=== PATIENT | male | born 1950 | race Hispanic/Latino ===

== ENCOUNTER 2017-11-09 18:33 | Emergency (ER) | payer OTHER ==
[2017-11-09] MEDS ORDERED: AMOXICILLIN/POTASSIUM CLAV 875-125 TABLET PO ONE (19:41)
[2017-11-09] MEDS ORDERED: LIDOCAINE HCL 1% 20 ML VIAL ONE (19:41)
[2017-11-09] MEDS ORDERED: TETANUS/DIPHTHERIA TOXOID [ADULT] 0.5 ML VIAL IM ONE (20:36)
== END 2017-11-09 20:58 | disposition home or self-care (01) ==
LOC: EDH 18:33
DX: S61.411A Laceration without foreign body of right hand, initial encounter (principal); I10 Essential (primary) hypertension; W54.0XXA Bitten by dog, initial encounter; Y93.89 Activity, other specified; Y92.89 Other specified places as the place of occurrence of the external cause; Y99.8 Other external cause status
CPT/HCPCS: 12042; 73130; 90471; 90714

== ENCOUNTER → 2018-06-19 | Outpatient (CLI) | payer OTHER ==
[2018-06-19 08:30] LABS: BASOPHILS % (AUTO) 1.3 % (0.0-5.0); EOSINOPHILS % (AUTO) 12.8 % (0.0-8.0); HEMATOCRIT 39.4 % (42-54); MEAN CORPUSCULAR HGB CONC 33.3 g/dL (32.0-36.0); MEAN CORPUSCULAR VOLUME 90.1 fL (79-99); MONOCYTES % (AUTO) 7.7 % (3.0-13.0); NEUTROPHILS % (AUTO) 47.2 % (40.0-77.0); PLATELET COUNT (AUTO) 239 K/uL (130-400); RED BLOOD CELL COUNT(AUTO) 4.37 MIL/uL (4.50-6.20); RED CELL DISTRIBUTION WIDTH 13.7 % (11.0-15.5); WHITE BLOOD COUNT (AUTO) 5.7 K/uL (4.8-10.8)
[2018-06-19 08:36] LABS: APPEARANCE,URINE Clear (CLEAR); BILIRUBIN,URINE Negative (NEGATIVE); COLOR,URINE Yellow (YELLOW); GLUCOSE, URINE (UA) Negative (NEGATIVE); KETONES,URINE Negative (NEGATIVE); LEUKOCYTE ESTERASE ,URINE Trace (NEGATIVE); NITRATE,URINE Negative (NEGATIVE); OCCULT BLOOD,URINE Negative (NEGATIVE); PROTEIN,URINE Negative (NEGATIVE)
[2018-06-19 08:50] LABS: ALBUMIN 3.5 g/dL (3.5-5.0); BILIRUBIN,TOTAL 0.3 mg/dL (0.2-1.0); POTASSIUM 4.8 mmol/L (3.5-5.1); THYROID STIMULATING HORMONE 1.27 uIU/mL (0.36-3.74); TOTAL PROTEIN, SERUM 7.4 g/dL (6.0-8.3)
[2018-06-19 08:59] LABS: BACTERIA,URINE Rare /HPF (None Seen); MUCUS,URINE Rare LPF (None Seen); RBC,URINE None Seen /HPF (0-1); SQUAMOUS EPITHELIAL CELL,UR Rare /HPF (0-2); WBC,URINE 0-1 /HPF (0-1)
== END | disposition home or self-care (01) ==
LOC: LAB 07:28
PROVIDERS: ATTEND Family Medicine
DX: I10 Essential (primary) hypertension (principal); E78.5 Hyperlipidemia, unspecified; Z72.89 Other problems related to lifestyle
CPT/HCPCS: 36415; 80053; 80061; 81001; 82306; 83036; 84153; 84443; 85025

== ENCOUNTER → 2020-05-04 | Outpatient (CLI) | payer OTHER ==
[2020-05-04 09:20] LABS: EOSINOPHILS % (AUTO) 20.1 % (0.0-8.0); HEMATOCRIT 39.8 % (42-54); LYMPHOCYTES % (AUTO) 30.8 % (21.0-51.0); MEAN CORPUSCULAR HEMOGLOBIN 29.7 pg (27.0-33.0); MEAN CORPUSCULAR HGB CONC 33.2 g/dL (32.0-36.0); MEAN CORPUSCULAR VOLUME 89.4 fL (79-99); MONOCYTES % (AUTO) 7.2 % (3.0-13.0); NEUTROPHILS % (AUTO) 40.8 % (40.0-77.0); PLATELET COUNT (AUTO) 260 K/uL (130-400); RED BLOOD CELL COUNT(AUTO) 4.45 MIL/uL (4.50-6.20); RED CELL DISTRIBUTION WIDTH 13.3 % (11.0-15.5); WHITE BLOOD COUNT (AUTO) 6.7 K/uL (4.8-10.8)
[2020-05-04 09:28] LABS: HEMOGLOBIN A1C 6.2 % (4.0-6.0)
[2020-05-04 09:34] LABS: APPEARANCE,URINE Clear (CLEAR); BILIRUBIN,URINE Negative (NEGATIVE); COLOR,URINE Yellow (YELLOW); GLUCOSE, URINE (UA) Negative (NEGATIVE); KETONES,URINE Negative (NEGATIVE); LEUKOCYTE ESTERASE ,URINE Negative (NEGATIVE); NITRATE,URINE Negative (NEGATIVE); OCCULT BLOOD,URINE Negative (NEGATIVE); PROTEIN,URINE Negative (NEGATIVE)
[2020-05-04 09:53] LABS: ALBUMIN 3.8 g/dL (3.5-5.0); BILIRUBIN,TOTAL 0.4 mg/dL (0.2-1.0); POTASSIUM 4.1 mmol/L (3.5-5.1); THYROID STIMULATING HORMONE 1.73 uIU/mL (0.36-3.74); TOTAL PROTEIN, SERUM 7.8 g/dL (6.0-8.3)
== END | disposition home or self-care (01) ==
LOC: RAH 07:37
PROVIDERS: ATTEND Family Medicine
DX: Z00.00 Encounter for general adult medical examination without abnormal findings (principal)
CPT/HCPCS: 36415; 80053; 80061; 81003; 82270; 82306; 83036; 84153; 84154; 84443; 85025

== ENCOUNTER → 2020-10-16 | Outpatient (CLI) | payer OTHER | END | disposition home or self-care (01) | LOC: RAH 13:59 | PROVIDERS: ATTEND Psychiatry & Neurology Neurology | DX: G30.9 Alzheimer's disease, unspecified (principal); F02.80 Dementia in other diseases classified elsewhere, unspecified severity, without behavioral disturbance, psychotic disturbance, mood disturbance, and anxiety | CPT/HCPCS: 70450 ==

== ENCOUNTER → 2021-07-18 | Outpatient (CLI) | payer OTHER ==
[2021-07-18 15:57] LABS: BASOPHILS % (AUTO) 0.9 % (0.0-5.0); EOSINOPHILS % (AUTO) 10.4 % (0.0-8.0); HEMATOCRIT 37.5 % (42-54); MEAN CORPUSCULAR HEMOGLOBIN 29.4 pg (27.0-33.0); MEAN CORPUSCULAR HGB CONC 32.8 g/dL (32.0-36.0); MEAN CORPUSCULAR VOLUME 89.7 fL (79-99); MONOCYTES % (AUTO) 6.6 % (3.0-13.0); NEUTROPHILS % (AUTO) 54.8 % (40.0-77.0); PLATELET COUNT (AUTO) 245 K/uL (130-400); RED BLOOD CELL COUNT(AUTO) 4.18 MIL/uL (4.50-6.20); RED CELL DISTRIBUTION WIDTH 13.2 % (11.0-15.5); WHITE BLOOD COUNT (AUTO) 7.4 K/uL (4.8-10.8)
[2021-07-18 15:59] LABS: APPEARANCE,URINE Clear (CLEAR); BILIRUBIN,URINE Negative (NEGATIVE); COLOR,URINE Yellow (YELLOW); GLUCOSE, URINE (UA) Negative (NEGATIVE); KETONES,URINE Negative (NEGATIVE); LEUKOCYTE ESTERASE ,URINE Trace (NEGATIVE); NITRATE,URINE Negative (NEGATIVE); OCCULT BLOOD,URINE Negative (NEGATIVE); PROTEIN,URINE Negative (NEGATIVE)
[2021-07-18 16:10] LABS: HEMOGLOBIN A1C 6.3 % (4.0-6.0)
[2021-07-18 16:13] LABS: BACTERIA,URINE Rare /HPF (None Seen); RBC,URINE 0-1 /HPF (0-1); SQUAMOUS EPITHELIAL CELL,UR Few /HPF (0-2)
[2021-07-18 16:19] LABS: ALBUMIN 3.8 g/dL (3.5-5.0); BILIRUBIN,TOTAL 0.2 mg/dL (0.2-1.0); POTASSIUM 4.1 mmol/L (3.5-5.1); THYROID STIMULATING HORMONE 1.01 uIU/mL (0.36-3.74); TOTAL PROTEIN, SERUM 7.6 g/dL (6.0-8.3)
== END | disposition home or self-care (01) ==
LOC: LAB 15:19
PROVIDERS: ATTEND Family Medicine
DX: Z00.00 Encounter for general adult medical examination without abnormal findings (principal)
CPT/HCPCS: 80053; 80061; 81001; 82306; 83036; 84153; 84443; 85025

== ENCOUNTER → 2022-03-06 | Outpatient (CLI) | payer OTHER ==
[2022-03-06 11:28] LABS: BASOPHILS % (AUTO) 1.1 % (0.0-5.0); EOSINOPHILS % (AUTO) 13.2 % (0.0-8.0); HEMATOCRIT 39.8 % (42-54); LYMPHOCYTES % (AUTO) 36.6 % (21.0-51.0); MEAN CORPUSCULAR HEMOGLOBIN 29.4 pg (27.0-33.0); MEAN CORPUSCULAR HGB CONC 32.9 g/dL (32.0-36.0); MEAN CORPUSCULAR VOLUME 89.2 fL (79-99); MONOCYTES % (AUTO) 6.9 % (3.0-13.0); NEUTROPHILS % (AUTO) 41.9 % (40.0-77.0); PLATELET COUNT (AUTO) 298 K/uL (130-400); RED BLOOD CELL COUNT(AUTO) 4.46 MIL/uL (4.50-6.20); RED CELL DISTRIBUTION WIDTH 13.9 % (11.0-15.5); WHITE BLOOD COUNT (AUTO) 6.4 K/uL (4.8-10.8)
[2022-03-06 11:41] LABS: HEMOGLOBIN A1C 6.2 % (4.0-6.0)
[2022-03-06 11:48] LABS: ALBUMIN 3.8 g/dL (3.5-5.0); POTASSIUM 4.2 mmol/L (3.5-5.1); THYROID STIMULATING HORMONE 2.2 uIU/mL (0.36-3.74); TOTAL PROTEIN, SERUM 7.9 g/dL (6.0-8.3)
== END | disposition home or self-care (01) ==
LOC: LAB 10:15
PROVIDERS: ATTEND Family Medicine
DX: I10 Essential (primary) hypertension (principal); E78.5 Hyperlipidemia, unspecified; G47.33 Obstructive sleep apnea (adult) (pediatric); G30.9 Alzheimer's disease, unspecified; F02.80 Dementia in other diseases classified elsewhere, unspecified severity, without behavioral disturbance, psychotic disturbance, mood disturbance, and anxiety
CPT/HCPCS: 36415; 80053; 80061; 82043; 82270; 82306; 83036; 84153; 84154; 84443; 85025

== ENCOUNTER 2022-04-14 10:30 | Day surgery (SDC) | payer OTHER ==
[~2022-04-14] VITALS: Ht 162.6 cm; Wt 83.9 kg
[2022-04-14] VITALS (9 sets, daily range): BP systolic 108–130; BP diastolic 64–80
[~2022-04-14 10:30] MED LIST: ASPI-1197 PO; CHOL200013 PO; CYAN-35 PO; ESCI5TAB16 PO; FISH OIL; GINK120C PO; GINSENG; LISI5TAB21 PO; MEMA5TAB42 PO; PYRI100T10 PO; SIMV-43 PO; TURM500C7 PO
[2022-04-14] MEDS ORDERED: 0.9%NACL 1000ML 1,000 ML IV ONE (11:18)
[2022-04-14] MEDS ORDERED: PROPOFOL 10 MG/ML 20ML VIAL IV ONE (12:35)
[2022-04-14] MEDS ORDERED: GLYCOPYRROLATE 1 MG/5 ML SYRINGE ONE (12:38)
== END 2022-04-14 13:05 | disposition home or self-care (01) ==
LOC: DAH 10:30 → ENDO 10:30
PROVIDERS: ATTEND Internal Medicine Gastroenterology
DX: Z12.11 Encounter for screening for malignant neoplasm of colon (principal); K63.5 Polyp of colon; K57.30 Diverticulosis of large intestine without perforation or abscess without bleeding; G47.33 Obstructive sleep apnea (adult) (pediatric); J45.909 Unspecified asthma, uncomplicated; M19.90 Unspecified osteoarthritis, unspecified site; I10 Essential (primary) hypertension; E78.5 Hyperlipidemia, unspecified; F41.9 Anxiety disorder, unspecified; Z80.0 Family history of malignant neoplasm of digestive organs; Z72.89 Other problems related to lifestyle; Z79.899 Other long term (current) drug therapy; Z86.010 Personal history of colon polyps
CPT/HCPCS: 87426; 45385; J3490; J7030 ×2; J2704; A4215 ×2; A4223; A4657; A4222; A4221; A4663; A4216; A4606

== ENCOUNTER → 2022-06-10 | Outpatient (CLI) | payer OTHER ==
[2022-06-10 15:28] LABS: EOSINOPHILS % (AUTO) 10.9 % (0.0-8.0); HEMATOCRIT 42.1 % (42-54); LYMPHOCYTES % (AUTO) 30.8 % (21.0-51.0); MEAN CORPUSCULAR HEMOGLOBIN 28.8 pg (27.0-33.0); MEAN CORPUSCULAR HGB CONC 32.5 g/dL (32.0-36.0); MEAN CORPUSCULAR VOLUME 88.4 fL (79-99); MONOCYTES % (AUTO) 6.4 % (3.0-13.0); NEUTROPHILS % (AUTO) 50.8 % (40.0-77.0); PLATELET COUNT (AUTO) 261 K/uL (130-400); RED BLOOD CELL COUNT(AUTO) 4.76 MIL/uL (4.50-6.20); RED CELL DISTRIBUTION WIDTH 13.3 % (11.0-15.5); WHITE BLOOD COUNT (AUTO) 7.8 K/uL (4.8-10.8)
[2022-06-10 15:30] LABS: APPEARANCE,URINE CLEAR (CLEAR); BILIRUBIN,URINE NEGATIVE (NEGATIVE); COLOR,URINE LIGHT-YELLOW (YELLOW); GLUCOSE, URINE (UA) NEGATIVE (NEGATIVE); KETONES,URINE NEGATIVE (NEGATIVE); LEUKOCYTE ESTERASE ,URINE NEGATIVE Leu/uL (NEGATIVE); NITRATE,URINE NEGATIVE (NEGATIVE); PROTEIN,URINE NEGATIVE (NEGATIVE); UROBILINOGEN,URINE 0.2 mg/dL (0.2-1.0)
[2022-06-10 15:35] LABS: MUCUS,URINE RARE LPF (None Seen); SQUAMOUS EPITHELIAL CELL,UR RARE /HPF (0-2); WBC,URINE 0-1 /HPF (0-1)
[2022-06-10 15:51] LABS: ALBUMIN 4.1 g/dL (3.5-5.0); CREATININE 0.9 mg/dL (0.5-1.5); POTASSIUM 4.3 mmol/L (3.5-5.1); THYROID STIMULATING HORMONE 2.61 uIU/mL (0.36-3.74); TOTAL PROTEIN, SERUM 8.5 g/dL (6.0-8.3)
== END | disposition home or self-care (01) ==
LOC: LAB 14:55
PROVIDERS: ATTEND Family Medicine
DX: I10 Essential (primary) hypertension (principal); F03.90 Unspecified dementia, unspecified severity, without behavioral disturbance, psychotic disturbance, mood disturbance, and anxiety; E66.9 Obesity, unspecified
CPT/HCPCS: 36415; 80053; 80061; 81001; 83036; 84153; 84443; 85025

== ENCOUNTER 2022-06-28 00:06 | Emergency (ER) | payer OTHER ==
[~2022-06-28] VITALS: Ht 162.6 cm; Wt 83.9 kg
[2022-06-28] MEDS ORDERED: IBUPROFEN 600 MG TABLET PO ONE (08:30)
[2022-06-28] MEDS ORDERED: CEFTRIAXONE 1G VIAL IM ONE (08:30)
[2022-06-28] MEDS ORDERED: AMOX1TAB16 PO (08:30)
[2022-06-28] MEDS ORDERED: IBUP-2070 PO (08:30)
[2022-06-28] MEDS ORDERED: HYDROCODONE/ACETAMINOPHEN 5/325 MG TAB PO ONE (08:30)
[2022-06-28] MEDS ORDERED: ACET-2079 PO (08:30)
[2022-06-28] MEDS ORDERED: BENZOCAINE 20% 57 GM SPRAY TP SCH (08:30)
[2022-06-28 08:47] VITALS: BP 125/57
== END 2022-06-28 08:50 | disposition home or self-care (01) ==
LOC: EDH 00:06
DX: K04.7 Periapical abscess without sinus (principal); K08.89 Other specified disorders of teeth and supporting structures; I10 Essential (primary) hypertension; F03.90 Unspecified dementia, unspecified severity, without behavioral disturbance, psychotic disturbance, mood disturbance, and anxiety; Z79.899 Other long term (current) drug therapy; Z79.82 Long term (current) use of aspirin
CPT/HCPCS: 99283; 96372; J0696

== ENCOUNTER → 2022-10-06 | Outpatient (CLI) | payer OTHER ==
[~2022-10-06] MED LIST changes: +ACET-2079 PO; +AMOX1TAB16 PO; +IBUP-2070 PO
[2022-10-06 11:07] LABS: APPEARANCE,URINE CLEAR (CLEAR); BILIRUBIN,URINE NEGATIVE (NEGATIVE); COLOR,URINE LIGHT-YELLOW (YELLOW); GLUCOSE, URINE (UA) NEGATIVE (NEGATIVE); KETONES,URINE NEGATIVE (NEGATIVE); LEUKOCYTE ESTERASE ,URINE NEGATIVE Leu/uL (NEGATIVE); NITRATE,URINE NEGATIVE (NEGATIVE); OCCULT BLOOD,URINE NEGATIVE (NEGATIVE); PROTEIN,URINE NEGATIVE (NEGATIVE); UROBILINOGEN,URINE 0.2 mg/dL (0.2-1.0)
[2022-10-06 11:15] LABS: HEMATOCRIT 41.5 % (42-54); LYMPHOCYTES % (AUTO) 30.8 % (21.0-51.0); MEAN CORPUSCULAR HEMOGLOBIN 29.5 pg (27.0-33.0); MEAN CORPUSCULAR HGB CONC 32.8 g/dL (32.0-36.0); MONOCYTES % (AUTO) 7.1 % (3.0-13.0); NEUTROPHILS % (AUTO) 44.9 % (40.0-77.0); PLATELET COUNT (AUTO) 232 K/uL (130-400); RED BLOOD CELL COUNT(AUTO) 4.61 MIL/uL (4.50-6.20); RED CELL DISTRIBUTION WIDTH 13.3 % (11.0-15.5); WHITE BLOOD COUNT (AUTO) 6.1 K/uL (4.8-10.8)
[2022-10-06 11:20] LABS: HEMOGLOBIN A1C 6.1 % (4.0-6.0)
[2022-10-06 11:39] LABS: ALBUMIN 3.8 g/dL (3.5-5.0); CREATININE 0.9 mg/dL (0.5-1.5); POTASSIUM 4.4 mmol/L (3.5-5.1); THYROID STIMULATING HORMONE 2.92 uIU/mL (0.36-3.74); TOTAL PROTEIN, SERUM 7.5 g/dL (6.0-8.3)
== END | disposition home or self-care (01) ==
LOC: LAB 09:58
PROVIDERS: ATTEND Family Medicine
DX: Z00.00 Encounter for general adult medical examination without abnormal findings (principal); Z12.5 Encounter for screening for malignant neoplasm of prostate; I10 Essential (primary) hypertension; E78.5 Hyperlipidemia, unspecified
CPT/HCPCS: 36415; 80053; 80061; 81003; 82270; 83036; 84153; 84443; 85025

== ENCOUNTER 2023-03-13 07:57 | Day surgery (SDC) | payer OTHER ==
[2023-03-13] MEDS ORDERED: 0.9%NACL 1000ML 1,000 ML IV ONE (08:27)
[2023-03-13 08:42] VITALS: BP 112/57; PULSE 54; RESP 16
[2023-03-13] MEDS ORDERED: LIDOCAINE PF 100MG/5ML (2%) SYRINGE 5ML ONE (09:40)
[2023-03-13] MEDS ORDERED: PROPOFOL 10 MG/ML 20ML VIAL IV ONE ×2 (09:40→09:47)
== END 2023-03-13 10:40 | disposition home or self-care (01) ==
LOC: ENDO 07:57 → DAH 07:57 → ENDO 10:40
PROVIDERS: ATTEND Internal Medicine Gastroenterology
DX: R63.4 Abnormal weight loss (principal); Z20.822 Contact with and (suspected) exposure to COVID-19; R63.0 Anorexia; K29.50 Unspecified chronic gastritis without bleeding; K31.7 Polyp of stomach and duodenum; K31.89 Other diseases of stomach and duodenum; K57.30 Diverticulosis of large intestine without perforation or abscess without bleeding; J45.909 Unspecified asthma, uncomplicated; G47.30 Sleep apnea, unspecified; I10 Essential (primary) hypertension; E78.5 Hyperlipidemia, unspecified; F41.9 Anxiety disorder, unspecified; Z86.010 Personal history of colon polyps; Z98.890 Other specified postprocedural states; Z80.0 Family history of malignant neoplasm of digestive organs; Z68.31 Body mass index [BMI] 31.0-31.9, adult; Z79.82 Long term (current) use of aspirin; Z79.899 Other long term (current) drug therapy
CPT/HCPCS: 43251; 43239; J7030 ×2; J2001; J2704 ×2; A4620; A4215 ×2; A4223; A7002; A4222; A4221; A4663; A4216; A4606; J3490

== ENCOUNTER → 2023-04-29 | Outpatient (CLI) | payer OTHER ==
[~2023-04-29] MED LIST changes: -ACET-2079 PO; -AMOX1TAB16 PO; -CHOL200013 PO; -IBUP-2070 PO
[2023-04-29 07:50] LABS: BASOPHILS # (AUTO) 0.08 K/uL (0.00-0.20); BASOPHILS % (AUTO) 1.2 % (0.0-5.0); EOSINOPHILS # (AUTO) 1.24 K/uL (0.00-0.70); EOSINOPHILS % (AUTO) 18.6 % (0.0-8.0); HEMATOCRIT 39.8 % (42-54); IMMATURE GRANULOCYTE ABSOLUTE 0.02 K/uL (0-1); LYMPHOCYTES % (AUTO) 30.5 % (21.0-51.0); MEAN CORPUSCULAR HEMOGLOBIN 29.9 pg (27.0-33.0); MEAN CORPUSCULAR HGB CONC 32.9 g/dL (32.0-36.0); MEAN CORPUSCULAR VOLUME 90.9 fL (79-99); MONOCYTES # (AUTO) 0.4 K/uL (0.1-1.0); MONOCYTES % (AUTO) 6.4 % (3.0-13.0); NEUTROPHILS # (AUTO) 2.9 K/uL (1.8-7.7); PLATELET COUNT (AUTO) 280 K/uL (130-400); RED BLOOD CELL COUNT(AUTO) 4.38 MIL/uL (4.50-6.20); RED CELL DISTRIBUTION WIDTH 13.3 % (11.0-15.5); WHITE BLOOD COUNT (AUTO) 6.7 K/uL (4.8-10.8)
[2023-04-29 08:36] LABS: ALBUMIN 3.5 g/dL (3.5-5.0); BILIRUBIN,TOTAL 0.2 mg/dL (0.2-1.0); CREATININE 0.9 mg/dL (0.5-1.5); POTASSIUM 4.3 mmol/L (3.5-5.1); TOTAL PROTEIN, SERUM 7.4 g/dL (6.0-8.3)
== END | disposition home or self-care (01) ==
LOC: LAB 07:25
PROVIDERS: ATTEND Family Medicine
DX: K29.40 Chronic atrophic gastritis without bleeding (principal); R63.0 Anorexia; R63.4 Abnormal weight loss
CPT/HCPCS: 36415; 80053; 82607; 82941; 83540; 85025; 86255; 86340

== ENCOUNTER → 2023-05-06 | Outpatient (CLI) | payer OTHER | END | disposition home or self-care (01) | LOC: RAH 12:26 | PROVIDERS: ATTEND Physician Assistant Medical | DX: R63.0 Anorexia (principal); R63.4 Abnormal weight loss | CPT/HCPCS: 36415; 71046; 84443 ==

== ENCOUNTER → 2023-05-11 | Outpatient (CLI) | payer OTHER ==
[~2023-05-11] MED LIST changes: +IOHEXOL-350 75 ML VIAL IV ONE
== END | disposition home or self-care (01) ==
LOC: RAH 07:43
PROVIDERS: ATTEND Internal Medicine Gastroenterology
DX: N28.1 Cyst of kidney, acquired (principal); R63.0 Anorexia; R63.4 Abnormal weight loss; K76.0 Fatty (change of) liver, not elsewhere classified; M47.815 Spondylosis without myelopathy or radiculopathy, thoracolumbar region; I70.0 Atherosclerosis of aorta
CPT/HCPCS: 74178; Q9967

== ENCOUNTER 2023-12-04 20:56 | Emergency (ER) | payer OTHER ==
[~2023-12-04] VITALS: Ht 162.6 cm; Wt 81.6 kg
[~2023-12-04 20:56] MED LIST changes: -IOHEXOL-350 75 ML VIAL IV ONE; +MEMA5TAB16 PO; -MEMA5TAB42 PO
[2023-12-04 21:42] LABS: BASOPHILS # (AUTO) 0.05 K/uL (0.00-0.20); BASOPHILS % (AUTO) 0.5 % (0.0-5.0); EOSINOPHILS # (AUTO) 0.62 K/uL (0.00-0.70); EOSINOPHILS % (AUTO) 5.9 % (0.0-8.0); HEMATOCRIT 37.9 % (42-54); IMMATURE GRANULOCYTE ABSOLUTE 0.03 K/uL (0-1); LYMPHOCYTES # (AUTO) 1.9 K/uL (1.0-4.8); LYMPHOCYTES % (AUTO) 17.6 % (21.0-51.0); MEAN CORPUSCULAR HEMOGLOBIN 29.7 pg (27.0-33.0); MEAN CORPUSCULAR HGB CONC 34.3 g/dL (32.0-36.0); MEAN CORPUSCULAR VOLUME 86.5 fL (79-99); MONOCYTES # (AUTO) 0.7 K/uL (0.1-1.0); MONOCYTES % (AUTO) 6.8 % (3.0-13.0); NEUTROPHILS # (AUTO) 7.3 K/uL (1.8-7.7); NEUTROPHILS % (AUTO) 68.9 % (40.0-77.0); PLATELET COUNT (AUTO) 232 K/uL (130-400); RED BLOOD CELL COUNT(AUTO) 4.38 MIL/uL (4.50-6.20); RED CELL DISTRIBUTION WIDTH 13.2 % (11.0-15.5); WHITE BLOOD COUNT (AUTO) 10.6 K/uL (4.8-10.8)
[2023-12-04 21:55] LABS: APPEARANCE,URINE TURBID (CLEAR); BILIRUBIN,URINE NEGATIVE (NEGATIVE); COLOR,URINE RED (YELLOW); GLUCOSE, URINE (UA) NEGATIVE (NEGATIVE); KETONES,URINE NEGATIVE (NEGATIVE); LEUKOCYTE ESTERASE ,URINE TRACE Leu/uL (NEGATIVE); NITRATE,URINE NEGATIVE (NEGATIVE); OCCULT BLOOD,URINE LARGE (NEGATIVE); PH,URINE 6.5 (5.0-8.0); PROTEIN,URINE 100 mg/dL (NEGATIVE)
[2023-12-04 21:57] LABS: BACTERIA,URINE Few /HPF (None Seen); RBC,URINE TNTC /HPF (0-1); YEAST,URINE BUDDING Few /HPF (None Seen)
[2023-12-04 22:02] LABS: INR <= 0.93 (0.85-1.15); PROTHROMBIN TIME 10.4 SEC (9.6-11.6)
[2023-12-04 22:03] LABS: PARTIAL THROMBOPLASTIN TIME 27.4 SEC (26.3-35.5)
[2023-12-04 22:12] LABS: ALBUMIN 3.7 g/dL (3.5-5.0); BILIRUBIN,TOTAL 0.2 mg/dL (0.2-1.0); TOTAL PROTEIN, SERUM 7.7 g/dL (6.0-8.3)
[2023-12-04] MEDS ORDERED: CEPH500B PO (22:28)
[2023-12-04] MEDS ORDERED: TAMS-1 PO (22:29)
[2023-12-04 22:40] VITALS: BP 134/75; PULSE 86; RESP 18; O2SAT 99
== END 2023-12-04 22:56 | disposition home or self-care (01) ==
LOC: EDH 20:56
DX: R31.9 Hematuria, unspecified (principal); I10 Essential (primary) hypertension; F03.90 Unspecified dementia, unspecified severity, without behavioral disturbance, psychotic disturbance, mood disturbance, and anxiety; Z79.82 Long term (current) use of aspirin; Z79.899 Other long term (current) drug therapy
CPT/HCPCS: 36415; 74176; 80053; 81001; 85025; 85610; 85730

== ENCOUNTER → 2024-12-20 | Outpatient (CLI) | payer OTHER ==
[~2024-12-20] MED LIST changes: +CEPH500B PO; -GINK120C PO; +GINK120C3 PO; +TAMS-55 PO
[2024-12-20 22:03] VITALS: PULSE 60; RESP 12
[2024-12-20 22:30] VITALS: PULSE 64; RESP 14
[2024-12-20 22:57] VITALS: PULSE 65; RESP 12
[2024-12-20 23:28] VITALS: PULSE 61; RESP 12
[2024-12-20 23:58] VITALS: PULSE 55; RESP 12
[2024-12-21] VITALS (9 sets, daily range): PULSE 52–72; RESP 12–14
== END | disposition home or self-care (01) ==
LOC: SLP 20:25
PROVIDERS: ATTEND Orthopaedic Surgery
DX: G47.33 Obstructive sleep apnea (adult) (pediatric) (principal); R06.83 Snoring; R40.0 Somnolence
CPT/HCPCS: 95810

== ENCOUNTER → 2025-01-06 | Outpatient (CLI) | payer OTHER ==
[2025-01-06 21:13] VITALS: PULSE 54; RESP 18
[2025-01-06 22:00] VITALS: PULSE 50; RESP 14
[2025-01-06 22:30] VITALS: PULSE 54; RESP 14
[2025-01-06 23:00] VITALS: PULSE 58; RESP 16
[2025-01-06 23:30] VITALS: PULSE 54; RESP 12
[2025-01-07] VITALS (12 sets, daily range): PULSE 48–58; RESP 12–28
== END | disposition home or self-care (01) ==
LOC: SLP 19:28
PROVIDERS: ATTEND Orthopaedic Surgery
DX: G47.33 Obstructive sleep apnea (adult) (pediatric) (principal); R06.83 Snoring; R53.83 Other fatigue; R45.1 Restlessness and agitation; N52.9 Male erectile dysfunction, unspecified
CPT/HCPCS: 95811

== ENCOUNTER 2025-02-05 01:13 | Observation (INO) | payer OTHER ==
[~2025-02-05] VITALS: Ht 162.6 cm; Wt 84.4 kg
--- NOTE | 2025-02-05 01:20 | NUR ---
COVID , FLU SWABS COLLECTED AND SENT [facility] [place] [facility] PROVIDED
[2025-02-05 01:39] LABS: SARS-CoV-2, RNA, NAAT NEGATIVE SARS CoV-2 (NEGATIVE)
[2025-02-05 01:49] LABS: INFLUENZA TYPE A Negative For Type A (NEGATIVE); INFLUENZA TYPE B Negative For Type B (NEGATIVE)
[2025-02-05 01:50] LABS: IMMATURE GRANULOCYTE ABSOLUTE 0.01 K/uL (0-1); NUCLEATED RED BLOOD CELLS 0.0 % (0.0-0.19); PLATELET COUNT (AUTO) 231 K/uL (130-400); RED BLOOD CELL COUNT(AUTO) 4.43 MIL/uL (4.50-6.20); RED CELL DISTRIBUTION WIDTH 12.8 % (11.0-15.5); WHITE BLOOD COUNT (AUTO) 8.2 K/uL (4.8-10.8)
--- NOTE | 2025-02-05 01:58 | NUR ---
PT SITTING IN LOBBY, WITH FAMILY. PT AND FAMILY TALKING, INTERACTING WELL. GOOD EVEN CHEST RISE AND FALL NOTED
[2025-02-05 01:59] LABS: CREATININE 0.9 mg/dL (0.5-1.3); GLOMERULAR FILTR. RATE CALC 90.0 mL/min (>90); GLUCOSE,RANDOM 102.0 mg/dL (70-105); SODIUM SERUM 141.0 mmol/L (136-145); UREA NITROGEN, BLOOD 15.0 mg/dL (7-18)
[2025-02-05 02:04] LABS: CREATINE KINASE, TOTAL 132.0 U/L (21-232)
--- NOTE | 2025-02-05 02:10 | NUR ---
[facility] COLLECTED AND SENT
[2025-02-05 02:23] LABS: ADD UA MICROSCOPIC YES; APPEARANCE,URINE CLEAR (CLEAR); GLUCOSE, URINE (UA) NEGATIVE (NEGATIVE); LEUKOCYTE ESTERASE ,URINE NEGATIVE Leu/uL (NEGATIVE); NITRATE,URINE NEGATIVE (NEGATIVE); OCCULT BLOOD,URINE SMALL (NEGATIVE)
[2025-02-05 02:31] LABS: SQUAMOUS EPITHELIAL CELL,UR RARE /HPF (0-2)
--- NOTE | 2025-02-05 03:03 | HMCIMG ---
EXAM: CR Chest, 1 view CLINICAL HISTORY: Chest pain. COMPARISON: Chest radiograph dated 05/06/2023. FINDINGS: The lungs show no infiltrates or other acute findings. No pleural effusion or pneumothorax. The cardiomediastinal silhouette is within normal limits. Mild atherosclerotic aorta. No acute osseous abnormality. IMPRESSION: No acute cardiopulmonary process is evident. No interval changes. /[place]
--- NOTE | 2025-02-05 03:06 | ERN ---
ED Note History of Present Illness Stated Complaint: CHEST PAIN Chief Complaint: Chest Pain Time Seen by MD: 02:19 Dictation: This is a 74-year-old male who presented to the emergency room complaining of chest heaviness for the past 9 days. He also reported a dry cough with the diff iculty expectorating. No palpitations diaphoresis syncopal episode. No nausea vomitings diarrhea. Patient has underlying dementia and is a poor historian information obtained from the .He stated that he still awaiting a BiPAP arrangement and he has just recently finished to sleep studies. No fever chills or rigors. Temperature 97.5 pulse 61 respirations 18 blood pressure 170/73 with a pulse oximetry 97% on room air Chronic medical problems include hypertension, dementia, obstructive sleep apnea syndrome and patient has stopped using his CPAP machine since June 2024. He has history of diverticulosis as well as UTI in the past Allergies: Coded Allergies: No Known Drug Allergies (Unverified Allergy, Unknown, 12/05/16) Home Meds Active Scripts Tamsulosin HCl (Flomax) 0.4 Mg Cap.er.24h, 0.4 MG PO DAILY, #7 CAPSULE.DR Prov:OZZIE CORRIGAN MD 12/04/23 Cephalexin Monohydrate (Keflex) 500 Mg Cap, 500 MG PO BID for 7 Days, #14 CAP Prov:OZZIE CORRIGAN MD 12/04/23 Reported Medications Escitalopram Oxalate (Escitalopram Oxalate) 5 Mg Tablet, 5 MG PO HS, TAB 04/11/22 Simvastatin (Simvastatin) 20 Mg Tablet, 20 MG PO HS, TAB 04/11/22 Lisinopril (Lisinopril) 5 Mg Tablet, 5 MG PO HS, TAB 04/11/22 Aspirin (Aspirin) 81 Mg Tab.chew, 81 MG PO DAILY, TAB.CHEW 04/11/22 Cyanocobalamin (Vitamin B-12) (Vitamin B-12) 1,000 Mcg Capsule, 1000 MCG PO DAILY, CAP 04/11/22 Ginkgo Biloba Extract (Ginkgo Biloba) 120 Mg Capsule, 120 MG PO DAILY, CAP 04/11/22 [Kiswahili Panax Gingeng] No Conflict Check, 500 MG 04/11/22 Turmeric/Turmeric Root Extract (Turmeric 450-50 mg Capsule) 1 Each Capsule, 1 EACH PO DAILYBKFST, CAP 04/11/22 Pyridoxine HCl (Vitamin B-6) 100 Mg Tablet, 100 MG PO BID, TAB 04/11/22 Memantine HCl (Memantine HCl) 5 Mg Tablet, 5 MG PO BID, TAB 04/11/22 [Fish Oil] No Conflict Check, 1350 MG 04/11/22 Past Medical History Past Medical History: Dementia, Diverticulosis, Hypertension, UTI, Other Additional Past Medical Hx: SLEEP APNEA WITH C CPAP Surgical History: Other Surgical History Other: PROSTATE Family History: Negative Social History: Negative, Lives with family RN Note Reviewed/Agreed w/PFSH: Yes Review of System Dictation Constitutional: Negative for fever,chills, and weight loss Eyes: Negative for injury, pain,redness, and discharge ENT: Negative for injury,pain or swelling Cardiovascular: Positive for chest pain, denies palpitations, and edema Respiratory: Negative for shortness of breath, cough, and wheezing, Abdomen/GI: Negative for abdominal pain, nausea, vomiting, diarrhea, and constipation Back: Negative for injury and pain : Negative for injury, bleeding and discharge MS/Extremity: Negative for injury and deformity Skin: Negative for rash, and discoloration Neuro: Negative for headache, weakness, numbness, tingling, and seizure Psych: Negative for suicide ideation, homicidal ideation, and hallucinations Initial Vital Sign VS Vital Signs Date Time Temp Pulse Resp B/P (MAP) Pulse Ox O2 Delivery O2 Flow Rate FiO2 02/05/25 01:14 97.5 61 18 170/73 97 Room Air 02/05/25 02:36 0 21 Physical Exam Dictation General: awake, alert, NAD Head/Face: Normocephalic, atraumatic Eyes: PERRL, EOMI, vision at baseline ENT: oral cavity clear, TMs clear, no signs of infection Neck: Trachea midline, supple, no nuchal rigidity Cardiovascular: RRR, normal S1/S2, No MRGs, no JVD Respiratory: CTAB, no respiratory distress, No rales or wheezes Abdomen: Soft, non-tender, non-distended, normal bowel sounds, no guarding or rebound. Skin: Warm, dry, normal turgor, no rash MS/Extremity: Pulses equal, no cyanosis, neurovascular intact, FROM Neuro: COAx4, GCS 15, strength 5/5, CN 2-12 intact, normal cerebellar exam, normal gait, Psych: Normal behavior, mood, and affect normal Extremities-trace edema without any palpable cords, Homans sign is negative Results (Laboratory/Radiology) Laboratory/Radiology Laboratory Tests Test 02/05/25 01:20 02/05/25 01:36 02/05/25 02:09 Influenza Type A Antigen Negative For Type A Influenza Type B Antigen Negative For Type B SARS-CoV-2, RNA, NAAT NEGATIVE SARS CoV-2 White Blood Count 8.2 K/uL (4.8-10.8) Red Blood Count 4.43 MIL/uL (4.50-6.20) L Hemoglobin 13.3 g/dL (14.0-18.0) L Hematocrit 39.5 % (42-54) L Mean Corpuscular Volume 89.2 fL (79-99) Mean Corpuscular Hemoglobin 30.0 pg (27.0-33.0) Mean Corpuscular Hemoglobin Concent 33.7 g/dL (32.0-36.0) Red Cell Distribution Width 12.8 % (11.0-15.5) Platelet Count 231 K/uL (130-400) Mean Platelet Volume 9.9 fL (7.5-10.5) Immature Granulocyte % (Auto) 0.1 % (0-1) Neutrophils (%) (Auto) 43.9 % (40.0-77.0) Lymphocytes (%) (Auto) 37.7 % (21.0-51.0) Monocytes (%) (Auto) 6.9 % (3.0-13.0) Eosinophils (%) (Auto) 10.3 % (0.0-8.0) H Basophils (%) (Auto) 1.1 % (0.0-5.0) Neutrophils # (Auto) 3.6 K/uL (1.8-7.7) Lymphocytes # (Auto) 3.1 K/uL (1.0-4.8) Monocytes # (Auto) 0.6 K/uL (0.1-1.0) Eosinophils # (Auto) 0.84 K/uL (0.00-0.70) H Basophils # (Auto) 0.09 K/uL (0.00-0.20) Absolute Immature Granulocyte (auto 0.01 K/uL (0-1) Nucleated Red Blood Cells 0.0 % (0.0-0.19) Sodium Level 141 mmol/L (136-145) Potassium Level 3.7 mmol/L (3.5-5.1) Chloride Level 103 mmol/L (101-111) Carbon Dioxide Level 29 mmol/L (21-32) Blood Urea Nitrogen 15 mg/dL (7-18) Creatinine 0.9 mg/dL (0.5-1.3) Glomerular Filtration Rate Calc 90 mL/min (>90) Random Glucose 102 mg/dL (70-105) Total Calcium 8.9 mg/dL (8.5-10.1) Total Creatine Kinase 132 U/L (21-232) Troponin I High Sensitivity 10 ng/L (4-75) Urine Color LIGHT-YELLOW (YELLOW) Urine Appearance CLEAR (CLEAR) Urine pH 5.5 (5.0-8.0) Urine Specific [place] 1.027 (1.001-1.031) Urine Protein NEGATIVE mg/dL (NEGATIVE) Urine Glucose (UA) NEGATIVE mg/dL (NEGATIVE) Urine Ketones NEGATIVE mg/dL (NEGATIVE) Urine Occult Blood SMALL (NEGATIVE) H Urine Nitrate NEGATIVE (NEGATIVE) Urine Bilirubin NEGATIVE mg/dL (NEGATIVE) Urine Urobilinogen 2.0 mg/dL (0.2-1.0) H Urine Leukocyte Esterase NEGATIVE Gutierrez/uL Urine RBC 2-5 /HPF (0-1) H Urine WBC 2-5 /HPF (0-1) H Urine Squamous Epithelial Cells RARE /HPF (0-2) Urine Bacteria FEW /HPF (None Seen) Labs Reviewed?: Yes ED Course ED Course Orders Procedure Category Date Status Time Vital Signs Per CPOE 02/05/25 Transmitted Routine 01:15 Chest 1vw RAD 02/05/25 Resulted 01:15 12 Lead Ekg Tracing- EKG 02/05/25 Logged Technical 01:15 Oxygen By Nc/Pulse Ox CPOE 02/05/25 Transmitted 01:15 Maintain Iv CPOE 02/05/25 Transmitted 01:15 Iv Insertion CPOE 02/05/25 Transmitted 01:15 Cardiac Monitoring CPOE 02/05/25 Transmitted 01:15 Pulse Oximetry With CPOE 02/05/25 Transmitted Vs And Prn 01:15 Cbc With Differential LAB 02/05/25 Complete 01:15 Activity: Br W/Brp CPOE 7/20/25 Transmitted With Assist 01:15 Creatine Kinase, Total LAB 02/05/25 Complete 01:15 Troponin I High LAB 02/05/25 Complete Sensitivity 01:15 Urinalysis Profile LAB 02/05/25 Complete 01:15 Basic Metabolic Panel LAB 02/05/25 Complete 01:15 Covid Rna Naat LAB 02/05/25 Complete 01:15 Influenza Type A & B, LAB 02/05/25 Complete Rapid 01:15 Bipap Settings RT 02/05/25 Verified 05:05 Aspirin 325mg Tab PHA 02/05/25 Verified (Aspirin 325mg Tab) 05:30 Nitroglycerin 0.4mg PHA 02/05/25 Verified Sl Tab (Nitrostat) 05:30 Pantoprazole 40mg Tab PHA 02/05/25 Verified (Protonix 40mg Tab 05:30 Vital Signs Date Time Temp Pulse Resp B/P (MAP) Pulse Ox O2 Delivery O2 Flow Rate FiO2 02/05/25 04:38 98.1 55 20 141/57 96 Room Air* 0 21 02/05/25 02:36 98.1 60 22 136/68 95 Room Air* 0 21 02/05/25 01:14 97.5 61 18 170/73 97 Room Air We will perform diagnostic labs, advanced imaging and administer medications according to the patient's complaint. Once the results are available, will review and personally interpreted the labs to rule out any acute life- threatening emergency the trach require immediate intervention and treatment. I will then re-evaluate the patient after treatment and diagnostic exams have return to determine whether the patient requires any further testing, can safely be discharged home or need further admission to hospital for additional treatment and evaluation. Labs reviewed-CBC acceptable with mild anemia. BNP 7 is with a normal limits. Troponins are negative. Urinalysis is unremarkable. Nasal swabs for influenza COVID and strep are negative. Chest x-ray showed hyperinflation with COPD type of changes but no focal infiltrate pneumothorax or any acute intra thoracic abnormalities. I updated the patient and spouse on all the available information in the lab test results. However in view of his ongoing chest pain for the past 8-9 days associated with heartburn it may simply be esophagitis however at his age and multiple risk factors it may also be an anginal equivalent and recommended that it would be prudent to get the workup done and patient was agreeable 5:10 a.m. patient was accepted by Lito, mid-level provider of critical access hospital hospitalist group for admission and further management HEART Score Response (Comments) Value History: Moderate suspicion (+1) 1 EKG: Repolarization changes 1 Age: > 65yrs (+2) 2 Risk Factors: 1-2 risk factors (+1) 1 Initial Troponin: Normal limit (0) 0 HEART Score Risk: Mod Risk for MACE (4-6) Total 5 Medical Decision Making MDM Differential diagnosis: Unstable angina, non-STEMI, pericarditis, esophagitis, gastroesophageal reflux disease, biliary colic Rationale: Tests considered and ordered secondary to shared decision making include: labs, ECG and radiology Previous outside records reviewed: Old ER visits. Risk of complication and/or morbidity or mortality of patient management: None Medications-Per medication reconciliation Need for hospitalization: Patient does meet criteria for hospitalization. Need for emergency major/minor surgery: No There are no social concerns with this patient. Prescription drug management Prescriptions will include symptomatic care Patient's prior external medical records from other ER visits were reviewed by me as indicated. Prior testing and results from previous visits were reviewed. Prior tests were taken into account with medical decision making and resource u tilization, independent historian/historians were used to obtain complete medical history. I independently interpreted the test that were performed, results were reviewed by me and considered findings on radiology if ordered. Medical management and examination interpretation discussions were had by me with other qualified healthcare professionals as indicated for the patient's ca re. Problem List Problem List: (1) Unstable angina (2) Hypertension (3) CEDRICK treated with BiPAP DX & DISP Disposition: Inpatient Decision to Admit Time: 04:35 Departure Impression: Primary Impression: Unstable angina Additional Impressions: Hypertension, CEDRICK treated with BiPAP Condition: Stable Additional Instructions: Patient was informed of all the diagnostic labs and procedures conducted in the emergency room today and demonstrated understanding of the results. I personally reviewed and interpreted all the diagnostic exams performed in the ER today. The patient will be admitted to the hospital for further treatment and evaluation. Disposition-admit to facility Condition-stable/guarded Course-uncertain at this time Pain status-decreased Assessment-exam unchanged Admission Certification- I certify that the patients status is appropriate and is based on my best clinical judgment and the patient's condition as documented in the medical records Referrals: CHANELLE BELL DO (PCP) NEIDA ECHAVARRIA MD Feb 05, 2025 03:06
[2025-02-05] MEDS ORDERED: NITROGLYCERIN 0.4 MG SL TAB SL PRN (05:30)
[2025-02-05] MEDS: ASPIRIN 325MG TAB PO ONE (05:38)
--- NOTE | 2025-02-05 09:37 | EKG ---
[facility] Test Date: 2025-02-05 Test Time: 01:17:03 Pat Name: JYOTHI VARGAS Department: [facility] Room: ED 16 Gender: M Customer Relations Representative: [id number] : 1950 Requested By: NEIDA ECHAVARRIA Order Number: [id number] Reading MD: Ildefonso Aelx Measurements Intervals [address] Rate: 59 P: 48 WI: 179 QRS: 61 QRSD: 63 T: 57 QT: 408 QTc: 405 Interpretive Statements Sinus rhythm Compared to ECG 12/10/2016 06:38:45 Sinus bradycardia no longer present Electronically Signed On 02-05-2025 16:24:38 CDT by Ildefonso Alex Please click the below link to view image of tracing.
[2025-02-05 10:04] LABS: CREATINE KINASE, TOTAL 104.0 U/L (21-232)
[2025-02-05] MEDS: FAMOTIDINE 20MG TAB PO SCH (10:34)
[2025-02-05] MEDS: ASPIRIN 81MG CHEW TAB PO SCH (10:35)
[2025-02-05 15:33] LABS: CREATINE KINASE, TOTAL 107.0 U/L (21-232)
[2025-02-05 16:00] VITALS: BP 131/62; PULSE 56; RESP 17; TEMP 97.8
--- NOTE | 2025-02-05 16:20 | NUR ---
GLUCOSE AT 1630 IS INVALID. WRONG PATIENT.
--- NOTE | 2025-02-05 16:42 | NUR ---
GAVE REPORT TO NURSE MIRELES. PATIENT TRANSFERRED TO ROOM 428.
[2025-02-05 16:51] VITALS: BP 137/59; PULSE 49; RESP 17; TEMP 97.8; O2SAT 97
--- NOTE | 2025-02-05 17:54 | HP ---
[facility] HISTORY & PHYSICAL Date Patient Seen: Feb 05, 2025 Time of Visit: 1257 Supervising Physician: Dr. Gilbert Primary Care Physician: Dr. Meme Ruano Outpatient Specialists: [ ] Inpatient Consults: [ ] PROBLEM LIST: Atypical angina Uncontrolled hypertension Hyperlipidemia Diabetes mellitus type 2 with hyperglycemia Obstructive sleep apnea currently does not have CPAP HPI: This is a 74-year-old male who presented to the emergency room complaining of chest heaviness for the past 9 days. He also reported a dry cough with the difficulty expectorating. No palpitations diaphoresis syncopal episode. No nausea vomitings diarrhea. Patient has underlying dementia and is a poor hi storian information obtained from the .He stated that he still awaiting a BiPAP arrangement and he has just recently finished to sleep studies. No fever chills or rigors. Temperature 97.5 pulse 61 respirations 18 blood pressure 170/73 with a pulse oximetry 97% on room air Chronic medical problems include hypertension, dementia, obstructive sleep apnea syndrome and patient has stopped using his CPAP machine since June 2024. He has history of diverticulosis as well as UTI in the past Patient was seen and examined by bedside with no family present. Patient is awake alert able to answer simple questions appropriately. Patient at time of visit denies any reoccurrence chest pain at this time. Denies any shortness of breadth. Denies any nausea vomiting abdominal pain. Patient's troponin levels have been unremarkable. We will follow up with patient's echocardiogram, and order a stress test for a.m.. If stress test in a.m. is unremarkable plan is for discharge after stress test. Patient to continue on aspirin 80 mg daily continue with the atorvastatin 40 mg q.h.s.. And continue to monitor via telemetry. PAST MEDICAL HX: see above PAST SURGICAL HX: noncontributory SOCIAL HISTORY: No tobacco, ETOH, or illicit drug use Coded Allergies: No Known Drug Allergies (Unverified Allergy, Unknown, 12/05/16) REVIEW OF SYSTEMS: 12 point ROS reviewed with patient. Pertinent positives mentioned above. Otherwise negative. PHYSICAL EXAM: GENERAL: alert, weak, awake oriented x 3 HEENT: EOMI, Sclera non icteric, moist mucosa NECK: Supple, no JVD, trachea midline LUNGS: Clear breath sounds bilaterally. No wheezes HEART: Regular rate and rhythm. Normal S1 and S2, without murmurs ABD: Abdomen soft, nontender. Bowel sounds present EXT: No clubbing cyanosis or edema NEURO: Alert and oriented to person, follows commands Vital Signs (last 8hr) Date Time Temp Pulse Resp B/P (MAP) Pulse Ox O2 Delivery O2 Flow Rate FiO2 02/05/25 16:00 97.9 56 17 131/62 97 Room Air 02/05/25 12:21 97.5 51 18 124/62 100 Room Air* 0 21 LABS: Hematology Labs: Test 02/05/25 01:36 Range/Units White Blood Count 8.2 4.8-10.8 K/uL Red Blood Count 4.43 L 4.50-6.20 MIL/uL Hemoglobin 13.3 L 14.0-18.0 g/dL Hematocrit 39.5 L 42-54 % Mean Corpuscular Volume 89.2 79-99 fL Mean Corpuscular Hemoglobin 30.0 27.0-33.0 pg Mean Corpuscular Hemoglobin Concent 33.7 32.0-36.0 g/dL Red Cell Distribution Width 12.8 11.0-15.5 % Platelet Count 231 130-400 K/uL Mean Platelet Volume 9.9 7.5-10.5 fL Immature Granulocyte % (Auto) 0.1 0-1 % Neutrophils (%) (Auto) 43.9 40.0-77.0 % Lymphocytes (%) (Auto) 37.7 21.0-51.0 % Monocytes (%) (Auto) 6.9 3.0-13.0 % Eosinophils (%) (Auto) 10.3 H 0.0-8.0 % Basophils (%) (Auto) 1.1 0.0-5.0 % Neutrophils # (Auto) 3.6 1.8-7.7 K/uL Lymphocytes # (Auto) 3.1 1.0-4.8 K/uL Monocytes # (Auto) 0.6 0.1-1.0 K/uL Eosinophils # (Auto) 0.84 H 0.00-0.70 K/uL Basophils # (Auto) 0.09 0.00-0.20 K/uL Absolute Immature Granulocyte (auto 0.01 0-1 K/uL Nucleated Red Blood Cells 0.0 0.0-0.19 % Chemistry Labs: Test 02/05/25 16:01 02/05/25 15:03 7/20/25 11:29 02/05/25 01:36 Range/Units Whole Blood Glucose 186 H 70-110 MG/DL Total Creatine Kinase 107 21-232 U/L Troponin I High Sensitivity 5.9 4-75 ng/L B-Type Natriuretic Peptide 14 0-100 pg/mL Thyroid Stimulating Hormone (TSH) 3.67 # 0.36-3.74 uIU/mL Sodium Level 141 136-145 mmol/L Potassium Level 3.7 3.5-5.1 mmol/L Chloride Level 103 101-111 mmol/L Carbon Dioxide Level 29 21-32 mmol/L Blood Urea Nitrogen 15 7-18 mg/dL Creatinine 0.9 0.5-1.3 mg/dL Glomerular Filtration Rate Calc 90 >90 mL/min Random Glucose 102 70-105 mg/dL Total Calcium 8.9 8.5-10.1 mg/dL DIAGNOSTICS / RADIOLOGY RESULTS: na PLAN Stress test in a.m. Follow up with echocardiogram Continue monitor via telemetry Repeat labs in a.m. Continue [id number] mg daily Continue atorvastatin 40 mg q.h.s. If stress test is unremarkable plan is for discharge tomorrow morning NEURO: Minimize central acting medications as possible. Maintain fall precautions, adequate lighting during the day PULMONARY: Supplemental 02 as needed. Maintain aspiration precautions at all times CARDIOVASCULAR: Follow hemodynamics. Vital signs per facility protocol GI & NUTRITION: Continue with nutritional support. Continue stool softeners and laxatives as needed. KIDNEYS & ELECTROLYTES: Strict monitoring of intake, output and overall fluid balance. Avoid nephrotoxic medications to the extent possible. Medications to be dosed according to renal function. Monitor electrolytes and replace as needed ENDOCRINE: Maintain blood glucose between 100-180 at all times. Hypoglycemia protocol in place INFECTIOUS DISEASE: Trend temperature, WBC and procalcitonin level Follow cultures, deescalate antibiotics as soon as possible. Panculture if new onset fever ONCOLOGY/HEMATOLOGY/COAGULATION: Monitor for s/s of bleeding Monitor hemoglobin, coagulation studies as needed SKIN: Pressure ulcer prevention per facility protocol Specialty mattress ORTHO/REHAB: Continue PT/OT Prophylaxis: Continue GI and DVT prophylaxis Code Status: Full Resuscitation Disposition: TBD Other: Case discussed with supervising physician plan of care agreed upon MARIANNE RIVERO Feb 05, 2025 17:54
[2025-02-05 18:45] VITALS: PULSE 55; RESP 18; O2SAT 97
[2025-02-05 20:00] VITALS: BP 148/55; PULSE 59; RESP 20; TEMP 98.5; O2SAT 98
[2025-02-05 21:39] LABS: CREATINE KINASE, TOTAL 108.0 U/L (21-232)
[2025-02-06] VITALS (7 sets, daily range): BP systolic 115–142; BP diastolic 45–70; PULSE 52–75; RESP 16–20; TEMP 97.8–98.6; O2SAT 92–99
[2025-02-06 04:10] LABS: IMMATURE GRANULOCYTE ABSOLUTE 0.02 K/uL (0-1); NUCLEATED RED BLOOD CELLS 0.0 % (0.0-0.19); PLATELET COUNT (AUTO) 220 K/uL (130-400); RED BLOOD CELL COUNT(AUTO) 4.44 MIL/uL (4.50-6.20); RED CELL DISTRIBUTION WIDTH 12.7 % (11.0-15.5); WHITE BLOOD COUNT (AUTO) 7.5 K/uL (4.8-10.8)
[2025-02-06 04:43] LABS: INR 0.98 (0.85-1.15)
[2025-02-06 04:54] LABS: CREATININE 0.9 mg/dL (0.5-1.3); GLOMERULAR FILTR. RATE CALC 90.0 mL/min (>90); GLUCOSE,RANDOM 94.0 mg/dL (70-105); PHOSPHORUS 3.9 mg/dL (2.5-4.9); SODIUM SERUM 140.0 mmol/L (136-145); UREA NITROGEN, BLOOD 16.0 mg/dL (7-18)
[2025-02-06] MEDS: REGADENOSON 0.4 MG/5 ML PF SYG IVP ONE (09:47)
[2025-02-06] MEDS: ENOXAPARIN SODIUM 40 MG/0.4 ML SYRINGE SQ SCH (10:26)
--- NOTE | 2025-02-06 12:27 | NUR ---
DCP: HOME Pt currently lives with his sps danuta Villalba [phone]. Pt does not have any insecurities with food, long-term, and/or utilities. Pt does not have DME, home health, or provider services. Pt states that he had a CPAP and was recently recommended a BIPAP however [facility] has not been able to fill RX yet. PCP is Dr. Bindu Preston and uses [facility]- short term or [facility]-bed bug exterminator. At DC pt will want to go home and family can assist with transportation. Addendum: 02/06/25 at 1232 by FAUZIA SINGLETON SS Amended: Links added.
--- NOTE | 2025-02-06 15:14 | HMCSR ---
APPROVED REPORT Height: 5 ft 4in Weight: 186 lbs TEST INDICATIONS Chest Pain The imaging protocol used to acquire images was Rest Tc-99m/stress Tc-99m 1 day Consent: The procedure was explained and understood by the patient. Informerd consent was witnessed Noam Herbert RN First, low dose rest was performed then high dose stress. RESTING DATA: The resting ekg shows: NSR Rest SPECT myocardial perfusion imaging was performed in supine position minutes following the intra venous injection of 11 mCi of Tc-99 Sestamibi. Time of rest injection: Date: 02/06/2025 Time of rest imaging: Date: 02/06/2025 PHARMACOLOGIC STRESS: Pharmacologic stress test was performed by injecting regadenoson 0.4 mg IV push followed by the intra venous injection of 29 mCi of Tc-99 Sestamibi. Time of stress injection: Date: 02/06/2025 Time of stress imaging: Date: 02/06/2025 Heart Rate at time of stress injection: 54 bpm. STRESS DETAILS Reason for Termination: Infusion complete Stress Symptoms: Dyspnea; Cough Max HR Achieved: 75 bpm % of APMHR Achieved: 60 Max Blood Pressure: 141/54 mmHg Stress ECG: NSR Arrhythmia: No. ST Change: No. Study quality was fair. Artifact: motion artifact LEFT VENTRICLE Size: The left ventricular size is normal. Systolic Function:The left ventricular systolic function is normal. Wall Motion: No regional wall motion abnormalities noted. The left ventricular ejection fraction was calculated to be 71%.TID = . LV PERFUSION The rest and stress images show normal perfusion. No reversible ischemia or areas of infarct were se en. No obvious TID. RV Size/Shape The right ventricle was not well visualized. IMPRESSION Stress ECG Summary: Nondiagnostic Conclusion Normal Lexiscan stress test. The rest and stress images show normal perfusion. No reversible ischemia or areas of infarct were se en. No obvious TID. The left ventricular size is normal. No regional wall motion abnormalities noted. The left ventricula r systolic function is normal. Post stress LVEF was calculated to be 71%. Stress ECG Summary: Nondiagnostic Study indicates a low risk for cardiovascular events.
--- NOTE | 2025-02-06 15:18 | HMCSR ---
APPROVED REPORT EXAM: Two-dimensional and M-mode echocardiogram with Doppler and color Doppler. INDICATION ICD: Chest Pain 2D Dimensions RVDd3.8 cmLVEF(%)56.6 (>50%)LVED Vol(simp.)91.0 mL IVSd0.9 (0.7-1.1cm)FS(%)29 %LVES Vol(simp.)44.0 mL LVDd3.4 (3.8-5.6cm)LA (2D)3.4 (1.6-4.0cm)LVEF(%, simp.)51 % PWd1.1 (0.7-1.1cm)Ao Root(2D)3.2 (2.0-3.7cm)LA ESV INDEX (BP)33.25 mL/m2 LVDs2.4 (2.5-4.0cm)LVOT diam2.1 (1.8-2.4cm) IVC diam1.9 cm Deformation Strain Apical 4-17.0 % Apical 2-18.2 % Apical 3-17.2 % Global Strain-17.5 % M-Mode Dimensions EPSS1.5 cm LA (MM)3.5 (1.6-4.0cm) Ao Root(MM)3.0 (2.0-3.7cm) Aortic Valve AoV Vmax1.5 m/[place] Peak GR9.3 mmHgLVOT Vmax0.9 m/s AoV VTI0.4 mAo Mean GR4.7 mmHgLVOT VTI0.22 m CHRISTIANO (VMAX)1.98 cm2AVA (VTI) 2.0 cm2 Mitral Valve MV E Vmax79.3 cm/sDECEL Vzxn882 ms MV A Vmax87.2 cm/sP 1/2 T102 ms E/A ratio0.9MVA (PHT)2.2 cm2 TDI E/E' Medial9.2E/E' Lateral7.2 Medial E' Peak V8.63 cm/sLateral E' Peak V11.09 cm/s Pulmonary Valve PV Vmax1.2 m/sPV VTI0.32 mPV Mean GR2.8 mmHg PV Peak GR5.4 mmHg Left Ventricle The left ventricle is normal size. No regional wall motion abnormalities noted. Mild concentric left ventricular hypertrophy. Left ventricular systolic function is low-normal, estimated LVEF is 50-55%. Stage I diastolic dysfunction. Right Ventricle The right ventricle is normal size. The right ventricular systolic function is normal. Atria The left atrium is borderline dilated. The right atrium size is normal. Aortic Valve Aortic valve is trileaflet. The leaflets are mildly thickened and calcified. There are suspected Bowden l's excursions seen on the right coronary leaflet Trace aortic regurgitation. There is no aortic valv ular stenosis. Mitral Valve The mitral valve is normal in structure. Trace mitral regurgitation. There is no mitral valve stenosi s. Tricuspid Valve The tricuspid valve is normal in structure. Trace tricuspid regurgitation. RVSP is normal. Pulmonic Valve Pulmonic valve is not well visualized. Great Vessels The aortic root is normal in size. The IVC is normal in size and collapses >50% with inspiration. Pericardium There is no pericardial effusion. Other Information Quality : Adequate Conclusion The left atrium is borderline dilated. Mild concentric left ventricular hypertrophy. No regional wall motion abnormalities noted. Left ventricular systolic function is low-normal, estimated LVEF is 50-55%. Stage I diastolic dysfunction. Trace aortic regurgitation. Trace mitral regurgitation. Trace tricuspid regurgitation. PASP is normal. There is no pericardial effusion.
--- NOTE | 2025-02-06 18:14 | DS ---
[facility] DISCHARGE SUMMARY Date Patient Seen: Feb 06, 2025 Time of Visit: 1238 Supervising Physician: Dr. Gilbert Primary Care Physician: Dr. Meem Ruano Outpatient Specialists: [ ] Inpatient Consults: [ ] PROBLEM LIST: Atypical angina, resolved s/p unremarkable stress test done on 02/06/2025 Left ventricular ejection fraction 50-55% with stage I diastolic dysfunction per echocardiogram 02/06/2025 Uncontrolled hypertension Hyperlipidemia Diabetes mellitus type 2 with hyperglycemia Obstructive sleep apnea currently does not have CPAP HOSPITAL COURSE: HPI (per admitting provider)This is a 74-year-old male who presented to the emergency room complaining of chest heaviness for the past 9 days. He also reported a dry cough with the difficulty expectorating. No palpitations diaphoresis syncopal episode. No nausea vomiting diarrhea. Patient has underlying dementia and is a poor historian information obtained from the .He stated that he still awaiting a BiPAP arrangement and he has just recently finished to sleep studies. No fever chills or rigors. Temperature 97.5 pulse 61 respirations 18 blood pressure 170/73 with a pulse oximetry 97% on room air Patient was seen and examined by bedside with present. Patient is awake alert able to answer simple questions appropriately. Denies any reoccurrence chest pain during hospitalization denies shortness of breadth. Denies nausea vomiting or abdominal pain. Patient's troponin levels were unremarkable. Patient's BNP unremarkable. Patient's stress test reports normal Lexiscan stress test indicates a low risk for cardiovascular event. Patient's echocardiogram revealed left ejection fraction of 50-55% with stage I diastolic dysfunction. Instructed patient will be getting discharged today and will need to follow up with PCP within 3-5 days upon discharge, and follow up with Cardiology within 3-5 days upon discharge. Both patient and voiced unde rstanding agrees with plan have no questions at this time The patient was treated for the following problems: ACTIVE PROBLEM LIST FOR THE HOSPITALIZATION: CHRONIC PROBLEMS: continue previous management per PCP unless otherwise indicated EMBEDDED DEVELOPER FINDINGS/RECOMMENDATIONS: na PROCEDURES: as mentioned above DISCHARGE MEDICATIONS: Pt hemodynamically stable and afebrile at time of discharge. PCP notified of patients admission, hospital course and discharge. Continued Medications: Aspirin (Aspirin) 81 Mg Tab.chew 81 MG PO DAILY, TAB.CHEW Cyanocobalamin (Vitamin B-12) (Vitamin B-12) 1,000 Mcg Capsule 1000 MCG PO DAILY, CAP Escitalopram Oxalate (Escitalopram Oxalate) 5 Mg Tablet 5 MG PO HS, TAB [Fish Oil] () 1350 MG Ginkgo Biloba Extract (Ginkgo Biloba) 120 Mg Capsule 120 MG PO DAILY, CAP [Kazakh Panax Gingeng] () 500 MG Lisinopril (Lisinopril) 5 Mg Tablet 5 MG PO HS, TAB Memantine HCl (Memantine HCl) 5 Mg Tablet 5 MG PO BID, TAB Pyridoxine HCl (Vitamin B-6) 100 Mg Tablet 100 MG PO BID, TAB Simvastatin (Simvastatin) 20 Mg Tablet 20 MG PO HS, TAB Tamsulosin HCl (Flomax) 0.4 Mg Cap.er.24h 0.4 MG PO DAILY, #7 CAPSULE. Turmeric/Turmeric Root Extract (Turmeric 450-50 mg Capsule) 1 Each Capsule 1 EACH PO DAILYBKFST, CAP Discontinued Medications: Cephalexin Monohydrate (Keflex) 500 Mg Cap 500 MG PO BID for 7 Days, #14 CAP PHYSICAL EXAM: GENERAL: alert, weak, awake oriented x 3 HEENT: EOMI, Sclera non icteric, moist mucosa NECK: Supple, no JVD, trachea midline LUNGS: Clear breath sounds bilaterally. No wheezes HEART: Regular rate and rhythm. Normal S1 and S2, without murmurs ABD: Abdomen soft, nontender. Bowel sounds present EXT: No clubbing cyanosis or edema NEURO: Alert and oriented to person, follows commands FOLLOW-UP: Follow-up with PCP in 2-3 days Follow up with Cardiology within 3-5 days upon discharge RECOMMENDATIONS: See Discharge Instructions This case was seen and discussed with my supervising physician. 35 minutes spent on discharge process, including evaluation of the patient, discussion with nursing staff, medication reconciliation and follow-up appointments MARIANNE RIVERO Feb 06, 2025 18:14
== END 2025-02-06 18:27 | disposition home or self-care (01) ==
LOC: EDH 01:13 → EDHIP 08:59 → UNDOADMOB 09:08 → 4DH 16:51
PROVIDERS: ADMIT Internal Medicine; ATTEND Internal Medicine
DX: I10 Essential (primary) hypertension (principal); Z20.822 Contact with and (suspected) exposure to COVID-19; E78.5 Hyperlipidemia, unspecified; E11.65 Type 2 diabetes mellitus with hyperglycemia; G47.33 Obstructive sleep apnea (adult) (pediatric); I20.0 Unstable angina; F03.90 Unspecified dementia, unspecified severity, without behavioral disturbance, psychotic disturbance, mood disturbance, and anxiety; Z79.899 Other long term (current) drug therapy
CPT/HCPCS: 99285; 84443; 82550 ×4; 84484 ×4; 80048 ×2; 83880; 85025 ×2; 87804 ×2; 82948; 81001; 36415 ×2; 87635; 71045; 93005; 96372; 83735; 84100; 85610; 93017; 78452; 93306; 93356; 94660; 84145; G0378 ×33; J1650; J2785; A9500 ×2